=== PATIENT | male | born 1990 ===

== ENCOUNTER 2024-09-02 02:51 | Emergency (ER) | payer MEDICAID ==
[~2024-09-02] VITALS: Ht 172.7 cm; Wt 117.2 kg
[2024-09-02 03:10] VITALS: BP 135/76; PULSE 81; RESP 17; TEMP 98.7; O2SAT 94
== END 2024-09-02 09:07 | disposition left against medical advice (07) ==
LOC: ER 02:52
DX: Z53.21 Procedure and treatment not carried out due to patient leaving prior to being seen by health care provider (principal)